=== PATIENT | male | born 1970 | race Caucasian/White ===

== ENCOUNTER 2017-07-15 22:26 | Emergency (ER) | payer MEDICAID ==
[~2017-07-15] VITALS: Ht 175.3 cm; Wt 96.6 kg
[2017-07-15 22:34] VITALS: BP_SYST 149
[2017-07-15] MEDS ORDERED: NACL 0.9% 1,000 ML IV ONE (22:39)
[2017-07-15] MEDS ORDERED: KETOROLAC TROMETHAMINE 30 MG VIAL IVP ONE (22:45)
[2017-07-15] MEDS ORDERED: ONDANSETRON HCL 4 MG/2 ML VIAL IVP ONE (22:45)
[2017-07-15 23:00] LABS: CALCIUM 9.3 mg/dL (8.4-11.0); CREATININE 1.3 mg/dL (0.55-1.30); POTASSIUM 3.7 mmol/L (3.5-5.1)
[2017-07-15 23:01] LABS: BASOPHILS % (AUTO) 0.4 % (0.0-2.0); EOSINOPHILS # (AUTO) 0.1 K/uL (0.0-0.4); EOSINOPHILS % (AUTO) 1.4 % (0.0-4.0); HEMATOCRIT 43.9 % (36-54); HEMOGLOBIN 14.8 g/dL (14.0-18.0); LYMPHOCYTES # (AUTO) 3.6 K/uL (1.0-5.5); LYMPHOCYTES % (AUTO) 53.3 % (20.5-51.5); MEAN CORPUSCULAR HEMOGLOBIN 30 pg (27-31); MEAN CORPUSCULAR HGB CONC 34 % (32-36); MEAN CORPUSCULAR VOLUME 88 fL (79.0-98.0); MONOCYTES # (AUTO) 0.5 K/uL (0.0-1.0); MONOCYTES % (AUTO) 6.8 % (1.7-9.3); NEUTROPHILS # (AUTO) 2.6 K/uL (1.8-7.7); NEUTROPHILS % (AUTO) 38.1 % (40.0-70.0); PLATELET COUNT (AUTO) 222 K/uL (130-430); RED BLOOD CELL COUNT(AUTO) 4.98 MIL/uL (4.2-6.2); RED CELL DISTRIBUTION WIDTH 11.9 % (9.0-15.0); WHITE BLOOD COUNT (AUTO) 6.8 K/uL (4.8-10.8)
[2017-07-15 23:05] LABS: ALBUMIN 4.1 g/dL (3.4-4.8); TOTAL BILIRUBIN 0.4 mg/dL (0.0-1.0); TOTAL PROTEIN, SERUM 7.6 g/dL (6.4-8.3)
[2017-07-15 23:29] LABS: BILIRUBIN,URINE NEGATIVE (NEGATIVE); BLOOD, URINE NEGATIVE (NEGATIVE); CLARITY/URINE CLEAR (CLEAR); COLOR,URINE YELLOW (YELLOW); GLUCOSE,URINE NEGATIVE (NEGATIVE); KETONES,URINE TRACE (NEGATIVE); LEUKOCYTE ESTERASE ,URINE NEGATIVE (NEGATIVE); NITRITE, URINE NEGATIVE (NEGATIVE); PH,URINE 5.5 (5.0-8.0); PROTEIN URINE NEGATIVE (NEGATIVE); UROBILINOGEN,URINE 0.2 (0.2-1.0)
[2017-07-15 23:39] VITALS: BP_SYST 145
[2017-07-15] MEDS ORDERED: fentaNYL CITRATE/PF 100 MCG/2 ML AMP IVP ONE (23:45)
== END 2017-07-15 23:39 | disposition home or self-care (01) ==
LOC: SED 22:26
DX: K80.20 Calculus of gallbladder without cholecystitis without obstruction (principal); E78.00 Pure hypercholesterolemia, unspecified; M19.90 Unspecified osteoarthritis, unspecified site
CPT/HCPCS: 36415; 74176; 80053; 81003; 85025; 96361; 96374; 96375; 99285; J1885; J2405; J7030

== ENCOUNTER 2017-07-16 10:09 | Inpatient (IN) | payer MEDICAID ==
[~2017-07-16] VITALS: Ht 175.3 cm; Wt 96.6 kg
[2017-07-16 10:10] VITALS: BP_SYST 138
--- NOTE | 2017-07-16 10:10 | NUR ---
Pt report received from MIKEL Armstrong. Pt here with c/o RUQ abd pain x 2 days. Pt discharged from ER yesterday and returns today because pain worsening and N/V.
--- NOTE | 2017-07-16 10:10 | NUR ---
BROUGHT BACK TO BED #8 AND REPORT GIVEN TO VENTURA
--- NOTE | 2017-07-16 10:20 | NUR ---
Dr. Ventura at bedside to assess pt.
[2017-07-16] MEDS ORDERED: HYDROcodone/ACETAMIN 5-325 MG TAB (NORCO/ VICODIN) PO ONE (11:00)
[2017-07-16 11:07] LABS: BASOPHILS # (AUTO) 0.2 K/uL (0.0-0.2); BASOPHILS % (AUTO) 1.7 % (0.0-2.0); HEMATOCRIT 43.3 % (36-54); HEMOGLOBIN 14.6 g/dL (14.0-18.0); LYMPHOCYTES # (AUTO) 1.2 K/uL (1.0-5.5); LYMPHOCYTES % (AUTO) 9.8 % (20.5-51.5); MEAN CORPUSCULAR HEMOGLOBIN 30 pg (27-31); MEAN CORPUSCULAR HGB CONC 34 % (32-36); MEAN CORPUSCULAR VOLUME 87 fL (79.0-98.0); MONOCYTES # (AUTO) 0.5 K/uL (0.0-1.0); MONOCYTES % (AUTO) 4.5 % (1.7-9.3); NEUTROPHILS # (AUTO) 10.2 K/uL (1.8-7.7); PLATELET COUNT (AUTO) 231 K/uL (130-430); RED BLOOD CELL COUNT(AUTO) 4.95 MIL/uL (4.2-6.2); RED CELL DISTRIBUTION WIDTH 11.6 % (9.0-15.0); WHITE BLOOD COUNT (AUTO) 12.1 K/uL (4.8-10.8)
[2017-07-16 11:17] LABS: CALCIUM 9.1 mg/dL (8.4-11.0); CREATININE 1.15 mg/dL (0.55-1.30); POTASSIUM 4.1 mmol/L (3.5-5.1)
[2017-07-16 11:22] LABS: TOTAL BILIRUBIN 0.5 mg/dL (0.0-1.0); TOTAL PROTEIN, SERUM 7.5 g/dL (6.4-8.3)
[2017-07-16] MEDS ORDERED: ONDANSETRON 4 MG ODT TAB PO ONE (11:45)
--- NOTE | 2017-07-16 12:30 | NUR ---
# 20 gauge angiocath placed to LAC. Use of asceptic technique. Opsite placed over site. Blood return noted. Flushed with 10 cc of normal saline. No evidence of infiltration noted. Patient tolerated well.
[2017-07-16] MEDS ORDERED: NACL 0.9% 1,000 ML IV ONE (12:45)
[2017-07-16] MEDS ORDERED: MORPHINE 4 MG/ML INJ. SYRINGE IVP ONE (13:00)
--- NOTE | 2017-07-16 13:00 | NUR ---
No needs verbalized at this time.
[2017-07-16] MEDS ORDERED: AMPICILLIN SODIUM/SULBACTAM NA 3 GM VIAL IM ONE (13:45)
--- NOTE | 2017-07-16 14:00 | NUR ---
Patient will be admitted to care of Dr. Quiles. Admitted to Med/Surg unit. Will go to room 123B. Belongings list completed. Summary report printed. Bedside report given to receiving RN.
--- NOTE | 2017-07-16 14:05 | NUR ---
ADMISSION: The patient, GERARD FERGUSON JR, 47 y/o, M admitted by KENDRA GUTIERREZ MD, was given written information regarding hospital policies, unit procedures and contact persons.
--- NOTE | 2017-07-16 14:15 | NUR ---
assessment rec patient awake alert with ivl on the l ac intact. denies pain at this time. resp easy and unlabored. no acute distress noted. bed in low position and side rails up and locked. call light within reached and knows when to call for assistance.
--- NOTE | 2017-07-16 16:00 | NUR ---
rounds with family in the room. denies pain and resting. call light within reached.
[2017-07-16] MEDS ORDERED: HYDROmorphone 1 MG INJ. 1 MG/ML AMPUL IVP PRN (16:45)
[2017-07-16] MEDS ORDERED: ONDANSETRON HCL 4 MG/2 ML VIAL IVP PRN (16:45)
[2017-07-16] MEDS ORDERED: KETOROLAC TROMETHAMINE 15 MG VIAL IVP PRN (16:45)
[2017-07-16] MEDS ORDERED: ACETAMINOPHEN 325 MG TABLET PO PRN (16:45)
[2017-07-16 16:53] VITALS: BP_SYST 132
--- NOTE | 2017-07-16 17:00 | NUR ---
rounds dr cristobal called and updated re patient condition. seen by dr solano. hida scan will be done at 1 am per nursing supervisor continuous weld pipe mill and was relayed to the patient.
--- NOTE | 2017-07-16 17:06 | NUR ---
Consult was called Re: Gallstones spoke with Lisseth from Dr.Corbisiero foy .
--- NOTE | 2017-07-16 17:23 | NUR ---
CONSULTATION: REASON FOR CONSULT: ABD PAIN CONSULTING PHYSICIAN: MARBELLA MENEZES MD ORDERED BY: KENDRA GUTIERREZ MD SPOKE WITH LEXX FROM EXCHANGE
[2017-07-16] MEDS: AMPICILLIN SODIUM/SULBACTAM NA 3 GM in NS 100 ML IV SCH (17:42)
--- NOTE | 2017-07-16 18:30 | NUR ---
closing notes seen by dr bedoya and spoke to patient for possible sx in am. no c.o pain at this time. resting comfortably. call light within reached.
[2017-07-16 20:00] VITALS: BP_SYST 128
--- NOTE | 2017-07-16 20:00 | NUR ---
STARTING FEED GRINDER NOTE Patient in bed resting and napping. He states he is not in pain at the time, no distress noted. VS within normal limits, fall precautions in place. Report received from day shift nurse.
--- NOTE | 2017-07-16 22:23 | NUR ---
Patient in bed sleeping, No S/S of pain or distress noted. Call light within reach, bed in lowest position.
[2017-07-17] VITALS: BP_SYST 135
--- NOTE | 2017-07-17 00:30 | NUR ---
ROUNDS Patient in bed sleeping. The instrumentation and controls technician came for the HIDA scan. No pain or distress noted. Fall precautions in place. The nurse collected urine for Urinalysis per MD order.
[2017-07-17] MEDS: AMPICILLIN SODIUM/SULBACTAM NA 3 GM in NS 100 ML IV SCH ×5 (00:40→23:04)
[2017-07-17 01:18] LABS: BILIRUBIN,URINE NEGATIVE (NEGATIVE); BLOOD, URINE NEGATIVE (NEGATIVE); CLARITY/URINE CLEAR (CLEAR); COLOR,URINE YELLOW (YELLOW); GLUCOSE,URINE NEGATIVE (NEGATIVE); KETONES,URINE NEGATIVE (NEGATIVE); LEUKOCYTE ESTERASE ,URINE NEGATIVE (NEGATIVE); NITRITE, URINE NEGATIVE (NEGATIVE); PROTEIN URINE NEGATIVE (NEGATIVE); UROBILINOGEN,URINE 0.2 (0.2-1.0)
--- NOTE | 2017-07-17 02:20 | NUR ---
C Addendum: 07/17/17 at 0506 by Zora Talamantes RN rounds Patient in bed sleeping. No S/S of distress or pain noted. Fall precautions in place.
[2017-07-17 04:00] VITALS: BP_SYST 127
--- NOTE | 2017-07-17 05:05 | NUR ---
ROUNDS Patient in bed sleeping. No pain or distress noted. Fall precautions in place.
[2017-07-17 07:13] LABS: BASOPHILS % (AUTO) 0.3 % (0.0-2.0); EOSINOPHILS % (AUTO) 0.2 % (0.0-4.0); HEMATOCRIT 44.8 % (36-54); HEMOGLOBIN 14.7 g/dL (14.0-18.0); LYMPHOCYTES # (AUTO) 1.7 K/uL (1.0-5.5); LYMPHOCYTES % (AUTO) 18.5 % (20.5-51.5); MEAN CORPUSCULAR HEMOGLOBIN 29 pg (27-31); MEAN CORPUSCULAR HGB CONC 33 % (32-36); MEAN CORPUSCULAR VOLUME 88 fL (79.0-98.0); MONOCYTES # (AUTO) 0.7 K/uL (0.0-1.0); MONOCYTES % (AUTO) 7.8 % (1.7-9.3); NEUTROPHILS # (AUTO) 6.8 K/uL (1.8-7.7); NEUTROPHILS % (AUTO) 73.2 % (40.0-70.0); PLATELET COUNT (AUTO) 215 K/uL (130-430); RED BLOOD CELL COUNT(AUTO) 5.07 MIL/uL (4.2-6.2); RED CELL DISTRIBUTION WIDTH 11.5 % (9.0-15.0); WHITE BLOOD COUNT (AUTO) 9.2 K/uL (4.8-10.8)
[2017-07-17 07:19] LABS: ALBUMIN 3.7 g/dL (3.4-4.8); CALCIUM 8.9 mg/dL (8.4-11.0); CREATININE 1.18 mg/dL (0.55-1.30); POTASSIUM 3.7 mmol/L (3.5-5.1); TOTAL BILIRUBIN 0.7 mg/dL (0.0-1.0); TOTAL PROTEIN, SERUM 7.1 g/dL (6.4-8.3)
[2017-07-17 08:00] VITALS: BP_SYST 132
--- NOTE | 2017-07-17 08:00 | NUR ---
INITIAL NOTE PT LAYING IN BED, AWAKE, ALERT AND ORIENTED, NO S/S OF ACUTE DISTRESS, PT DENIES ABDOMINAL PAIN, BUT COMPLAINS OF MILD HEADACHE, REFUSES PAIN MEDICATION FOR HEADACHE, IV TO LAC INTACT, NO S/S OF INFILTRATION NOTED, PLAN OF CARE DISCUSSED, PT VERBALIZED UNDERSTANDING, SAFETY MEASURES IN PLACE CALL LIGHT WITHIN REACH, WILL CONTINUE TO MONITOR
--- NOTE | 2017-07-17 08:01 | NUR ---
CLOSING NOTE Patient is in bed resting. He states he does not have abdominal pain, but he has a headache. He stated that he does not want anything for the headache. No other S/S of distress noted. Report given to the day shift nurse. Surgery pending the HIDA scan results from 1 am last night.
--- NOTE | 2017-07-17 08:30 | NUR ---
DR MENEZES AT BEDSIDE
--- NOTE | 2017-07-17 10:00 | NUR ---
SPOKE WITH DR GILLIS, PER PREP PT FOR SURGERY, SPOKE WITH PT YESTERDAY, PT AGREED AND VERBALIZED UNDERSTANDING OF SURGERY, CONSENT SIGNED, WILL CONTINUE WITH PREP
--- NOTE | 2017-07-17 11:20 | NUR ---
PT TAKEN TO OR STABLE, ALERT AND ORIENTED, ABLE TO MAKE NEEDS KNOWN, WILL AWAIT RETURN
[2017-07-17] MEDS ORDERED: LR 1,000 ML IV SCH (11:58)
[2017-07-17] MEDS ORDERED: METOCLOPRAMIDE HCL 10 MG/2 ML VIAL IVP PRN (12:00)
[2017-07-17] MEDS ORDERED: MORPHINE 2 MG/ML INJ. SYRINGE IVP PRN ×3 (12:00)
[2017-07-17] MEDS ORDERED: ACETAMINOPHEN 325 MG TABLET PO PRN (12:45)
[2017-07-17] MEDS ORDERED: MORPHINE 4 MG/ML INJ. SYRINGE ONE (13:12)
--- NOTE | 2017-07-17 13:27 | NUR ---
PT RETURNED FROM PROCEDURE, STABLE, ALERT, ABLE TO MAKE NEEDS KNOWN, IV FLUIDS INFUSING AT ORDERED RATE, SCDS IN PLACE, INCENTIVE SPIROMETER AT BEDSIDE, WILL FOLLOW UP WITH EDUCATION, COMMONLY USED ITEMS WITHIN REACH, FAMILY AT BEDSIDE, WILL MONITOR PT CLOSELY
[2017-07-17 13:45] VITALS: BP_SYST 129
[2017-07-17] MEDS ORDERED: ONDANSETRON HCL 4 MG/2 ML VIAL IVP PRN (14:00)
[2017-07-17] MEDS: NACL 0.9% 1,000 ML IV SCH ×2 (14:00→23:04)
--- NOTE | 2017-07-17 14:45 | NUR ---
DR GUTIERREZ MAKING ROUNDS, UPDATED ON PT STATUS, WILL FOLLOW UP WITH ANY NEW ORDERS.
[2017-07-17] MEDS: HYDROmorphone 1 MG INJ. 1 MG/ML AMPUL IVP PRN ×2 (15:14→18:53)
--- NOTE | 2017-07-17 15:30 | NUR ---
PAIN MANAGEMENT PT COMPLAIN OF PAIN 10/10, PAIN MEDS GIVEN
--- NOTE | 2017-07-17 16:00 | NUR ---
INCENTIVE SPIROMETER EDUCATION PT ABLE TO DEMONSTRATE CORRECT USE, ABLE TO REACH 500CC AT THIS TIME DUE TO PAIN IT CAUSES, WILL FOLLOW UP
[2017-07-17 16:11] VITALS: BP_SYST 129
--- NOTE | 2017-07-17 18:45 | NUR ---
CLOSING NOTE PT SITTING UP IN BED, AWAKE, ALERT AND ORIENTED, NO S/S OF DISTRESS, PAIN MEDICATION ADMINISTERED PER PT REQUEST, IV FLUIDS INFUSING TO LAC AT ORDERED RATED, NO S/S OF INFILTRATION NOTED, SCDS IN PLACE, INCENTIVE SPIROMETER AT BEDSIDE PT ABLE TO REACH 750, WILL ENDORSE TO CONTINUE TO REINFORCE USE, ALL NEEDS ATTENDED TO THROUGHOUT SHIFT, SAFETY MEASURES MAINTAINED, WILL GIVE REPORT TO FOLLOWING SHIFT
[2017-07-17 19:05] VITALS: BP_SYST 130
--- NOTE | 2017-07-17 19:05 | NUR ---
Initial Rounds Received patient in bed awake with at bedside .Pt is alert, oriented x4. No s/s of any distress noted. IV noted to L a/c g 18, no infiltrate and with good blood return. Noted dressing to abd, no bleeding and no discharge noted. Call light in reach, will cont to monitor.
--- NOTE | 2017-07-17 21:05 | NUR ---
Rounds Patient is resting comfortably with at bedside. No s/s of pain or distress noted. Call light in reach, will cont to monitor.
--- NOTE | 2017-07-17 23:05 | NUR ---
Rounds Assisted patient to b/r and safely back to bed. No s/s of ant distress noted. Call light in reach, will cont to monitor.
--- NOTE | 2017-07-18 01:05 | NUR ---
Rounds Patient is resting comfortably in bed. No s/s of pain or any distress noted. Call light in reach, will cont to monitor.
[2017-07-18] MEDS: HYDROmorphone 1 MG INJ. 1 MG/ML AMPUL IVP PRN (01:17)
[2017-07-18 01:30] VITALS: BP_SYST 130
--- NOTE | 2017-07-18 03:05 | NUR ---
Rounds Assisted to b/r and safely back to bed . No s/s of any distress noted. Call light in reach, will cont to monitor.
[2017-07-18 03:49] VITALS: BP_SYST 127
[2017-07-18] MEDS: AMPICILLIN SODIUM/SULBACTAM NA 3 GM in NS 100 ML IV SCH ×3 (05:03→17:29)
[2017-07-18] MEDS: HYDROcodone/ACETAMIN 5-325 MG TAB (NORCO/ VICODIN) PO PRN ×3 (05:47→14:56)
[2017-07-18 06:20] LABS: BASOPHILS % (AUTO) 0.2 % (0.0-2.0); EOSINOPHILS % (AUTO) 0.1 % (0.0-4.0); HEMATOCRIT 40.2 % (36-54); HEMOGLOBIN 13.8 g/dL (14.0-18.0); LYMPHOCYTES # (AUTO) 1.6 K/uL (1.0-5.5); LYMPHOCYTES % (AUTO) 16.9 % (20.5-51.5); MEAN CORPUSCULAR HEMOGLOBIN 30 pg (27-31); MEAN CORPUSCULAR HGB CONC 34 % (32-36); MEAN CORPUSCULAR VOLUME 88 fL (79.0-98.0); MONOCYTES # (AUTO) 0.9 K/uL (0.0-1.0); MONOCYTES % (AUTO) 9.3 % (1.7-9.3); NEUTROPHILS # (AUTO) 7.2 K/uL (1.8-7.7); NEUTROPHILS % (AUTO) 73.5 % (40.0-70.0); PLATELET COUNT (AUTO) 198 K/uL (130-430); RED BLOOD CELL COUNT(AUTO) 4.58 MIL/uL (4.2-6.2); RED CELL DISTRIBUTION WIDTH 11.6 % (9.0-15.0); WHITE BLOOD COUNT (AUTO) 9.8 K/uL (4.8-10.8)
[2017-07-18 06:52] LABS: ALBUMIN 3.1 g/dL (3.4-4.8); CALCIUM 8.5 mg/dL (8.4-11.0); CREATININE 1.17 mg/dL (0.55-1.30); TOTAL PROTEIN, SERUM 6.8 g/dL (6.4-8.3)
[2017-07-18 06:58] LABS: POTASSIUM 3.7 mmol/L (3.5-5.1)
--- NOTE | 2017-07-18 07:22 | NUR ---
Final Rounds Patient is resting at this time. No s/s of pain or any distress noted. patient is ambulating and compliant with spyrometer. No bowel movwement at this time. All needs met and anticipated by noc nurses. Call light in reach, will endorse care.
[2017-07-18 08:00] VITALS: BP_SYST 137
--- NOTE | 2017-07-18 08:00 | NUR ---
INITIAL NOTE PT LAYING IN BED, RESTING, EASY TO AROUSE, VSS, NO S/S OF ACUTE DISTRESS, ABLE TO DEMONSTRATE USE OF INCENTIVE SPIROMETER, CAN REACH 1000, PLAN OF CARE DISCUSSED, PT VERBALIZED UNDERSTANDING, SAFETY MEASURES IN PLACE, CALL LIGHT WITHIN REACH, WILL FOLLOW UP
[2017-07-18] MEDS ORDERED: DOCUSATE SODIUM 100 MG CAPSULE PO SCH (09:00)
[2017-07-18] MEDS: NACL 0.9% 1,000 ML IV SCH (09:42)
--- NOTE | 2017-07-18 09:45 | NUR ---
DR GILLIS CALLED TO CHECK ON PT STATUS, UPDATED, ORDERED COLACE BID AND STATED HE WOULD COME TO SEE PT SOON
--- NOTE | 2017-07-18 10:00 | NUR ---
DR GILLIS AT BEDSIDE, MED PASS OF PAIN MED AND GABRIELLE, PT TOLERATED WELL, UP. WALKIG AROUND ROOM, TOLERATING WALKING WELL, ABLE TO GET IN AND OUT OF BED WELL, STEADY GAIT, WILL CONTINUE TO MONITOR
[2017-07-18 12:35] VITALS: BP_SYST 134; BP_SYST 147
--- NOTE | 2017-07-18 13:00 | NUR ---
IV ANIBIOTIC HANGED LATE DUE TO PATIENT CARE, PT STATES HE HAS NO NEEDS AT THIS TIME, WILL CONTINUE TO MONITOR
--- NOTE | 2017-07-18 15:00 | NUR ---
PAIN MANAGEMENT, PT COMPLAINED OF PAIN 5/10, ADMINISTERED PAIN MEDICATION, WILL CONTINUE TO MONITOR
[2017-07-18 16:10] VITALS: BP_SYST 139
--- NOTE | 2017-07-18 17:30 | NUR ---
DR GUTIERREZ MAKING ROUNDS, UPDATED ON PATIENT STATUS AND PT CLEARED BY DR GILLIS, WAITING DISCHARGE ORDER
[2017-07-18] MEDS ORDERED: HYDR-1189 (18:14)
[2017-07-18] MEDS ORDERED: L.RH1CAP PO (18:14)
[2017-07-18] MEDS ORDERED: AMOX-426 PO (18:14)
[2017-07-18 18:16] VITALS: BP_SYST 139
--- NOTE | 2017-07-18 18:40 | NUR ---
D/C Patient Patient given medication reconciliation form and D/C instructions. Exit Care provided. Patient verbalized understanding. MD discussed with patient the results and treatment provided. Ambulatory with steady gait for discharge to home. Patient in stable condition, ID band removed. IV catheter removed, intact and dressing applied, no active bleeding. Rx of NORCO, AUGMENTIN, AND PROBIOTIC given. Patient educated on pain management. All belongings sent with patient.
== END 2017-07-18 18:40 | disposition home or self-care (01) | DRG 263 ==
LOC: SED 10:09 → SMU 13:35
PROVIDERS: ADMIT Internal Medicine; ATTEND Internal Medicine
PROC: 0FT44ZZ Resection of Gallbladder, Percutaneous Endoscopic Approach (ICD-10-PCS; principal; 2017-07-17 10:00)
DX: K80.00 Calculus of gallbladder with acute cholecystitis without obstruction (principal); K82.1 Hydrops of gallbladder; R16.2 Hepatomegaly with splenomegaly, not elsewhere classified; K57.90 Diverticulosis of intestine, part unspecified, without perforation or abscess without bleeding; E78.00 Pure hypercholesterolemia, unspecified; K21.9 Gastro-esophageal reflux disease without esophagitis; M19.90 Unspecified osteoarthritis, unspecified site; K40.90 Unilateral inguinal hernia, without obstruction or gangrene, not specified as recurrent; E66.01 Morbid (severe) obesity due to excess calories; Z68.31 Body mass index [BMI] 31.0-31.9, adult; Z83.79 Family history of other diseases of the digestive system
CPT/HCPCS: 36415; 71010; 76700-TC; 78226; 80053; 81003; 83605; 83690-TC; 85025; 85610-TC; 85730-TC; 87081; 88304; 93005; 96361; 96374; 99285; A9537; C1727; J0295; J1170; J2270; J7030; Q0162

== ENCOUNTER 2021-08-19 19:47 | Emergency (ER) | payer BC, SELFPAY ==
[~2021-08-19] VITALS: Ht 172.7 cm; Wt 97.5 kg
[~2021-08-19 19:47] MED LIST: AMOX-426 PO; HYDR-3919; L.RH1CAP PO
[2021-08-19 20:04] VITALS: BP_SYST 127
--- NOTE | 2021-08-19 20:04 | NUR ---
Patient to ER tent for evaluation.
--- NOTE | 2021-08-19 20:08 | NUR ---
Patient complaining of headache and body aches today worsening. Patient reports that he was recently exposed to Covid 19. Afebrile denies SOB. No acute distress noted. pain 03/08
--- NOTE | 2021-08-19 21:41 | NUR ---
ER Dr. Ascencio at bedside examining patient.
[2021-08-19 22:01] VITALS: BP_SYST 116
--- NOTE | 2021-08-19 22:01 | NUR ---
Patient given written and verbal discharge instructions and verbalizes understanding. ER MD discussed with patient the results and treatment provided. Patient in stable condition. ID arm band removed. No rx given. Patient educated on pain management and to follow up with PMD. Pain Scale 0/10 Opportunity for questions provided and answered.
== END 2021-08-19 22:01 | disposition home or self-care (01) ==
LOC: SED 19:47
DX: B34.9 Viral infection, unspecified (principal); E78.00 Pure hypercholesterolemia, unspecified; Z20.822 Contact with and (suspected) exposure to COVID-19; Z79.899 Other long term (current) drug therapy
CPT/HCPCS: 36415; 99283

== ENCOUNTER 2024-03-12 20:40 | Emergency (ER) | payer BC, OTHER ==
[~2024-03-12] VITALS: Ht 175.3 cm; Wt 99.8 kg
[2024-03-12 21:02] VITALS: BP_SYST 151; PULSE 83; RESP 16; TEMP 98.5; O2SAT 95
[2024-03-12] MEDS: IBUPROFEN 600 MG TABLET PO ONE (21:41)
[2024-03-13] VITALS: BP_SYST 135; PULSE 86; RESP 16; TEMP 97.9; O2SAT 96
== END 2024-03-12 23:59 | disposition home or self-care (01) ==
LOC: SED 20:40
DX: S93.401A Sprain of unspecified ligament of right ankle, initial encounter (principal); S83.92XA Sprain of unspecified site of left knee, initial encounter; X58.XXXA Exposure to other specified factors, initial encounter; Y93.67 Activity, basketball; Y92.39 Other specified sports and athletic area as the place of occurrence of the external cause; Y99.8 Other external cause status
CPT/HCPCS: 73564; 99284